=== PATIENT | female | born 2000 | race Two or more races ===

== ENCOUNTER 2024-05-14 07:55 | Inpatient (IN) | payer MEDICAID, OTHER ==
[~2024-05-14] VITALS: Ht 167.6 cm; Wt 79.2 kg
[2024-05-14 08:29] LABS: Basophils # (auto) 0 10 ^3/uL (0-0.2); Basophils % (auto) 0.3 % (0.0-2.0); Eosinophils # (auto) 0.1 10 ^3/uL (0-0.8); Eosinophils % (auto) 0.6 % (0.0-7.0); Hematocrit 36.4 % (36.0-46.0); Hemoglobin 12.4 g/dL (12.2-16.2); Lymphocytes # (auto) 2.9 10 ^3/uL (0.4-5.4); Lymphocytes % (auto) 25.5 % (10.0-50.0); Mean Corpuscular Hemoglobin 31.6 pg (28.0-32.0); Mean Corpuscular Hgb Conc. 34.1 g/dL (32.0-36.0); Mean Corpuscular Volume 92.6 fL (80.0-100.0); Monocytes # (auto) 0.5 10 ^3/uL (0-1.3); Monocytes % (auto) 4.6 % (0.0-12.0); Neutrophils # (auto) 7.8 10 ^3/uL (1.6-8.6); Nucleated Red Blood Cells % 0.1 %; Red Blood Cells 3.93 10^6/uL (4.0-5.20); White Blood Cell 11.4 10^3/uL (4.4-10.8)
[2024-05-14 08:32] LABS: Urine Bacteria FEW /hpf (None Seen); Urine Blood 2+ /uL (Negative); Urine Clarity Hazy (Clear); Urine Color Light-Yellow (Yellow); Urine Mucus FEW (None Seen); Urine Protein, UAD Negative (Negative); Urine Specific Gravity 1.019 (1.001-1.035); Urine Urobilinogen 2 mg/dL (Negative); Urine WBC 2 /hpf (0 - 5)
[2024-05-14 09:35] VITALS: PULSE 82; RESP 16; O2SAT 96
[2024-05-14] MEDS: SODIUM CHLORIDE 0.9% 1,000 ML IV ONE (09:35)
[2024-05-14] MEDS ORDERED: NITROGLYCERIN 0.4 MG SL TAB SL PRN ×2 (10:15→10:30)
[2024-05-14] MEDS ORDERED: DOCUSATE SOD 100 MG CAP PO PRN ×2 (10:15→10:30)
[2024-05-14] MEDS ORDERED: MORPHINE SULFATE INJ 2 MG/ml SYRG IV PRN ×2 (10:15→10:30)
[2024-05-14] MEDS ORDERED: SODIUM CHLORIDE 0.9% 1,000 ML IV SCH (10:15)
[2024-05-14] MEDS ORDERED: ONDANSETRON HCL 4 MG/2 ML VIAL IV PRN ×2 (10:15→10:30)
[2024-05-14] MEDS ORDERED: cefTRIAXone 1GM/50ML D5W 50 ML IV ONE (10:15)
[2024-05-14] MEDS: cefTRIAXone 1GM/50ML D5W 50 ML IV ONE (11:21)
[2024-05-14] MEDS: SODIUM CHLORIDE 0.9% 1,000 ML IV SCH (11:21)
[2024-05-14 15:26] VITALS: PULSE 65; RESP 18; O2SAT 96
[2024-05-14] MEDS ORDERED: ALBU2TAB11 PO (16:03)
[2024-05-14 21:00] VITALS: BP 132/74; PULSE 91; RESP 18; TEMP 98.1; O2SAT 97
[2024-05-15] VITALS (8 sets, daily range): BP systolic 111–134; BP diastolic 65–81; PULSE 71–102; RESP 16–20; TEMP 98.1–98.4; O2SAT 98–100
[2024-05-15] MEDS ORDERED: cefTRIAXone 1GM/50ML D5W 50 ML IV SCH (09:00)
[2024-05-15] MEDS: cefTRIAXone 1GM/50ML D5W 50 ML IV SCH (09:16)
[2024-05-15] MEDS ORDERED: ACETAMINOPHEN 325 MG TAB PO PRN (15:30)
[2024-05-15 16:46] LABS: Basophils # (auto) 0 10 ^3/uL (0-0.2); Basophils % (auto) 0.2 % (0.0-2.0); Eosinophils # (auto) 0.1 10 ^3/uL (0-0.8); Eosinophils % (auto) 1.1 % (0.0-7.0); Hematocrit 35.3 % (36.0-46.0); Hemoglobin 12.1 g/dL (12.2-16.2); Lymphocytes # (auto) 3.4 10 ^3/uL (0.4-5.4); Lymphocytes % (auto) 37.2 % (10.0-50.0); Mean Corpuscular Hgb Conc. 34.3 g/dL (32.0-36.0); Mean Corpuscular Volume 93.2 fL (80.0-100.0); Monocytes # (auto) 0.7 10 ^3/uL (0-1.3); Monocytes % (auto) 8.1 % (0.0-12.0); Neutrophils # (auto) 4.8 10 ^3/uL (1.6-8.6); Neutrophils % (auto) 53.4 % (37.0-80.0); Red Blood Cells 3.78 10^6/uL (4.0-5.20)
[2024-05-15 17:09] LABS: Albumin 4.2 g/dL (3.2-4.8); Alkaline Phosphatase 36 U/L (46-116); Anion Gap 9 (5-15); Aspartate Aminotransferase < 8 U/L (13-40); BUN/Creatinine Ratio 8.5 (10.0-20.0); Bilirubin, Total 0.3 mg/dL (0.2-1.0); Blood Urea Nitrogen 6 mg/dL (9-23); Calcium 9.5 mg/dL (8.7-10.4); Carbon Dioxide 24 mmol/L (20-30); Chloride 106 mmol/L (98-107); Glucose 78 mg/dL (74-106); Magnesium 2.1 mg/dL (1.6-2.6); Sodium 139 mmol/L (136-145); Total Protein 7.1 g/dL (5.7-8.2)
[2024-05-15 17:43] LABS: Alanine Aminotransferase < 9 U/L (7-40)
[2024-05-15] MEDS ORDERED: ESTROGENS, CONJUGATED 25 MG VIAL IV SCH (18:00)
[2024-05-15] MEDS: NAPROXEN 500 MG TAB PO SCH (21:53)
[2024-05-15] MEDS: ESTROGENS, CONJUGATED 25 MG VIAL IV SCH (21:54)
[2024-05-15] MEDS: ONDANSETRON HCL 4 MG/2 ML VIAL IV PRN (21:55)
[2024-05-16 01:00] VITALS: BP 101/49; PULSE 84; RESP 19; TEMP 97.7; O2SAT 98
[2024-05-16] MEDS ORDERED: LEV50T PO (02:28)
[2024-05-16] MEDS ORDERED: NORG0.257 PO (02:28)
[2024-05-16 05:00] VITALS: BP_SYST 105; BP_SYST 116; BP_DIAS 64; BP_DIAS 78; PULSE 70; RESP 20; TEMP 98; O2SAT 99
[2024-05-16] MEDS: LEVOTHYROXINE SODIUM 50 MCG TAB PO SCH (06:17)
[2024-05-16 06:47] LABS: Basophils # (auto) 0 10 ^3/uL (0-0.2); Basophils % (auto) 0.2 % (0.0-2.0); Eosinophils # (auto) 0.2 10 ^3/uL (0-0.8); Eosinophils % (auto) 1.5 % (0.0-7.0); Hemoglobin 11.4 g/dL (12.2-16.2); Lymphocytes # (auto) 3.4 10 ^3/uL (0.4-5.4); Lymphocytes % (auto) 32.3 % (10.0-50.0); Mean Corpuscular Hemoglobin 32.2 pg (28.0-32.0); Mean Corpuscular Hgb Conc. 34.4 g/dL (32.0-36.0); Mean Corpuscular Volume 93.8 fL (80.0-100.0); Monocytes # (auto) 0.6 10 ^3/uL (0-1.3); Neutrophils # (auto) 6.3 10 ^3/uL (1.6-8.6); Red Blood Cells 3.52 10^6/uL (4.0-5.20); Red Cell Distribution Width 14.1 % (11.8-14.3); White Blood Cell 10.5 10^3/uL (4.4-10.8)
[2024-05-16 06:54] LABS: INR 0.94 (0.9-1.15); Partial Thromboplastin Time 22.3 SEC (24.5-34.5)
[2024-05-16 06:58] LABS: Albumin 4.1 g/dL (3.2-4.8); Alkaline Phosphatase 36 U/L (46-116); Anion Gap 8 (5-15); Aspartate Aminotransferase < 8 U/L (13-40); BUN/Creatinine Ratio 12.3 (10.0-20.0); Bilirubin, Total 0.3 mg/dL (0.2-1.0); Blood Urea Nitrogen 7 mg/dL (9-23); Carbon Dioxide 21 mmol/L (20-30); Chloride 109 mmol/L (98-107); Glucose 93 mg/dL (74-106); Potassium 3.7 mmol/L (3.5-5.1); Sodium 138 mmol/L (136-145); Total Protein 6.5 g/dL (5.7-8.2)
[2024-05-16 06:59] LABS: Alanine Aminotransferase < 9 U/L (7-40)
[2024-05-16] MEDS: PROCHLORPERAZINE EDISYLATE 5 MG/ML 2ML VIAL IV PRN (07:46)
[2024-05-16 08:00] VITALS: PULSE 88; RESP 18; O2SAT 98
[2024-05-16 08:17] VITALS: BP 113/56; PULSE 83; RESP 18; TEMP 98.4; O2SAT 97
[2024-05-16 08:59] LABS: % Iron Saturation 18.7 % (15-50)
[2024-05-16 09:35] LABS: Free T3 3.24 pg/mL (2.3-4.2)
[2024-05-16 09:36] LABS: Free T4 (Free Thyroxine) 1.08 ng/dL (0.89-1.76)
[2024-05-16 13:05] VITALS: BP 115/60; PULSE 88; RESP 18; TEMP 98.2; O2SAT 98
[2024-05-16 16:07] VITALS: BP 115/65; PULSE 78; RESP 18; TEMP 98.4; O2SAT 99
== END 2024-05-16 16:48 | disposition home or self-care (01) | DRG 532 ==
LOC: ER 07:55 → OVERFLOW 10:08 → WEST WING 10:23 → ER 10:23 → WEST WING 15:22
PROVIDERS: ADMIT Internal Medicine Pulmonary Disease; ATTEND Emergency Medicine
DX: N93.8 Other specified abnormal uterine and vaginal bleeding (principal); E03.8 Other specified hypothyroidism; N94.6 Dysmenorrhea, unspecified; N30.00 Acute cystitis without hematuria; J45.909 Unspecified asthma, uncomplicated; Z91.041 Radiographic dye allergy status; Z91.013 Allergy to seafood; Z79.899 Other long term (current) drug therapy; Z83.3 Family history of diabetes mellitus; Z80.3 Family history of malignant neoplasm of breast; Z82.49 Family history of ischemic heart disease and other diseases of the circulatory system; Z82.5 Family history of asthma and other chronic lower respiratory diseases
CPT/HCPCS: 36415; 76830; 76856; 80053; 81001; 82728; 83540; 83550; 83735; 84439; 84443; 84481; 84702; 85025; 85610; 85730; 86376; 86592; 86800; 87086; 96361; 96365; G0378; J2405